=== PATIENT | female | born 1985 | race African-American/Black ===

== ENCOUNTER 2016-07-02 08:30 | Emergency (ER) | payer OTHER ==
[2016-07-02 08:14] LABS: BASOPHILS 0.1 %; BASOPHILS ABSOLUTE 0.01 10/3/uL (0.0-0.16); EOSINOPHILS 1.9 %; EOSINOPHILS ABSOLUTE 0.13 10/3/uL (0.0-0.53); ER CBC TAT 0 Hrs 07 Mins; HEMOGLOBIN 10.7 g/dL (12.0-16.0); IMMATURE GRANULOCYTES 0.1 %; IMMATURE GRANULOCYTES ABSOLUTE 0.01 10/3/uL (0.0-0.11); LYMPHOCYTES 39.4 %; LYMPHOCYTES ABSOLUTE 2.67 10/3/uL (0.67-4.30); MEAN CORPUS HGB CONC 31.8 g/dL (32.0-36.0); MEAN PLATELET VOLUME 8.8 fL (9.2-13.0); MONOCYTES 4.9 %; MONOCYTES ABSOLUTE 0.33 10/3/uL (0.21-1.20); NEUTROPHILS 53.6 %; NEUTROPHILS ABSOLUTE 3.63 10/3/uL (2.02-8.40); PLATELET COUNT 225 10/3/uL (150-400); RBC DISTRIBUTION WIDTH 14.2 % (12.0-16.0); RED CELL COUNT 3.72 10/6/uL (4.0-5.6); WHITE BLOOD CELLS 6.8 10/3/uL (4.5-10.5)
[2016-07-02 08:15] LABS: HEMATOCRIT 33.7 % (36.0-48.0); MANUAL DIFF NO %; MEAN CORPUSCULAR HEMOGLOB 28.8 pg (26.0-34.0); MEAN CORPUSCULAR VOLUME 90.6 fL (80-100)
[~2016-07-02 08:30] MED LIST: ABILIFY10 PO; ALLERGY TABLET PO; ANADS PO; ATIVAN PO; AUG875 PO; BEN25 PO; BENTYL20 PO; CELEXA20 PO; CELEXA40 MG PO; CENTRUM PO; CENTRUM TAB1 TAB PO; CIP5 PO; CLEOCIN300 MG PO; CYANO1000T PO; DSS PO; DURA100 TOP; DURA50 TOP; FESO4 PO; FLAG500TAB PO; FLUCON1 PO; FLUCON150 PO; HUMIRA SC; IMOD PO; IRON OTC PO; IRON325 MG PO; K-TABS10 MEQ PO; KLONO5 PO; LEVAQUIN5T PO; LEVAQUIN750 MG PO; LEVSINTAB SL; LORCET PO; LORT7 PO; LORTAB 5 PO; LORTAB10 PO; MEDROLPAK4 PO; MULTIVIT/MIN PO; MYLICON 80 MG T80 MG PO; NEUR300 PO; NEUR600 PO; NEXIUM40 PO; NICODERM C14 MG/24 H TOP; NORCO1 TAB PO; OXYCOD PO; P10; P10 PO; P20 PO; P5 PO; PCET PO; PENTASA PO; PENTASA500 MG PO; PEPCID40 MG PO; PERCOCET1 TA2 PO; PERCOCET1 TA4 PO; POTASSIUM OTC PO; PR25 PO; PR25R PR; REG PO; RELA5 PO; REMICADE IV; SEPTRA DS1 TAB PO; STERAPRED DS10 MG; STERAPRED5 MG; SUCR PO; T PO; VITAMIN B PO; VITAMIN B-121000 MC1 SL; VITAMIN D OTC PO; VITAMIN D1000 UNI1 PO
[2016-07-02 08:34] LABS: A/G RATIO 0.9 (0.7-1.9); ALBUMIN 3.3 G/DL (3.5-5.0); ALKALINE PHOSPHATASE 72 U/L (45-117); BUN (BLOOD UREA NITROGEN) 12 MG/DL (6-23); CALCIUM, SERUM 8.5 MG/DL (8.5-10.4); CHLORIDE, SERUM 112 MMOL/L (96-112); CO2 (CARBON DIOXIDE) 27 MMOL/L (24-34); CREATININE 0.94 MG/DL (0.55-1.02); GFR AFRICAN AMERICAN 92 ML/MIN (>=60); GFR NON AFRICAN AMERICAN 80 ML/MIN (>=60); GLOBULIN 3.8 G/DL (2.5-4.1); GLUCOSE, SERUM 87 MG/DL (60-99); POTASSIUM, SERUM 4.1 MMOL/L (3.5-5.3); SGOT(AST) 15 U/L (5-40); SGPT(ALT) 16 U/L (5-65); SODIUM, SERUM 142 MMOL/L (135-148); TOTAL BILIRUBIN 0.6 MG/DL (0-1.2); TOTAL PROTEIN 7.1 G/DL (6.0-8.5)
== END 2016-07-02 14:57 | disposition left against medical advice (07) ==
LOC: ER 08:30
PROVIDERS: Emergency Medicine
DX: R10.9 Unspecified abdominal pain (principal); R11.0 Nausea; D64.9 Anemia, unspecified; I50.9 Heart failure, unspecified; F32.9 Major depressive disorder, single episode, unspecified; F41.9 Anxiety disorder, unspecified; Z87.891 Personal history of nicotine dependence; Z91.013 Allergy to seafood; Z88.5 Allergy status to narcotic agent; Z88.8 Allergy status to other drugs, medicaments and biological substances; Z79.52 Long term (current) use of systemic steroids; Z79.899 Other long term (current) drug therapy
CPT/HCPCS: 74022; 80053; 84703; 85025; 96365; 96372; 96375; 99284; J1200; J2800